=== PATIENT | male | born 1985 | race Caucasian/White ===

== ENCOUNTER 2018-08-25 11:10 | Emergency (ER) | payer SELFPAY ==
[~2018-08-25] VITALS: Ht 175.3 cm; Wt 104.3 kg
--- NOTE | 2018-08-25 11:34 | PHYS DOC ---
Adult General Chief Complaint Chief Complaint: FINGER INJURY [facility] HPI Patient is a 32 year old male who presents with complaint of injury to the right index finger. Patient states while moving a TV with a coworker, the TV slipped down and fell onto the top of the patient's right index finger, striking the PIP joint. The patient states that he has severe pain to the finger with moderate swelling. This took place shortly prior to arrival. Has not taken any medications for symptoms. Notes that there is a skin injury just on top of the PIP joint. States he is up-to-date on tetanus immunization. Denies any other injuries. States he is unable to flex the finger secondary to pain. Review of Systems Review of Systems Constitutional: Denies fever or chills [] Eyes: Denies change in visual acuity, redness, or eye pain [] HENT: Denies nasal congestion or sore throat [] Respiratory: Denies cough or shortness of breath [] Cardiovascular: No additional information not addressed in HPI [] GI: Denies abdominal pain, nausea, vomiting, bloody stools or diarrhea [] : Denies dysuria or hematuria [] Musculoskeletal: Denies back pain or joint pain [] Integument: Denies rash or skin lesions [] Neurologic: Denies headache, focal weakness or sensory changes [] Endocrine: Denies polyuria or polydipsia [] All other systems were reviewed and found to be within normal limits, except as documented in this note. Allergies Allergies No known drug allergies Physical Exam Physical Exam Constitutional: Well developed, well nourished, no acute distress, non-toxic appearance. [] [] Skin: Warm, dry, no erythema, no rash. [] Extremities: Moderate soft tissue swelling of the proximal right second phalanx, small avulsion skin injury at dorsum of PIP joint of second phalanx, unable to flex right second finger secondary to pain, tenderness to palpation at right second PIP joint and proximal phalanx. [] Neurologic: Alert and oriented X 3, normal motor function, normal sensory function, no focal deficits noted. [] Current Patient Data Vital Signs Vital Signs Date Time Temp Pulse Resp B/P (MAP) Pulse Ox O2 Delivery O2 Flow Rate FiO2 08/25/18 11:45 98.1 100 16 99 Lab Results Not performed EKG EKG Not performed[] Radiology/Procedures Radiology/Procedures [address] [place] [address] IMAGING REPORT Signed PATIENT: ODILIA VIDES ACCOUNT: [id number] : 1985 LOCATION: ER AGE: 32 SEX: M EXAM STATUS: REG ER ORD. PHYSICIAN: DARIAN ZEE MD REASON: crush injury to right index finger PROCEDURE: HAND RIGHT 3V Examination: 3 views of the right hand HISTORY: History of crush injury to the right index finger COMPARISON: None available FINDINGS: The alignment of the metacarpophalangeal joints, interphalangeal joints grossly appears unremarkable. There is no acute fracture or dislocation identified IMPRESSION: No acute osseous findings. Electronically signed by: Alan Morgan MD (08/25/2018 11:48 AM) [id number] DICTATED AND SIGNED BY: ALAN MORGAN MD DATE: 08/25/18 1148 CC: DARIAN ZEE MD; PCP,NO ~ [] Course & Med Decision Making Course & Med Decision Making Pertinent Labs and Imaging studies reviewed. (See chart for details) Wound was treated with antibiotic ointment and bandage. The patient was placed in an aluminum foam splint of the right index finger by the emergency department nurse. My evaluation post splint patient showed normal capillary refill in the index finger and normal sensation. Advised follow-up with primary doctor in the next 7 days for reevaluation and return to emergency department for any worsening symptoms. Patient was understanding and in agreement with treatment plan.[] Dragon Disclaimer Dragon Disclaimer This electronic medical record was generated, in whole or in part, using a voice recognition dictation system. Departure Departure: Impression: Primary Impression: Crushing injury of finger of right hand Additional Impression: Avulsion of skin of finger Disposition: 01 HOME, SELF-CARE Condition: IMPROVED Referrals: PCP,NO (PCP) Patient Instructions: Crush Injury, Fingers or Toes Additional Instructions: Follow-up with primary care in 7 days for reevaluation if symptoms are not improving. Return to emergency department for any worsening symptoms. Problem Qualifiers Additional Impression: Avulsion of skin of finger Encounter type: initial encounter Qualified Codes: S61.209A - Unspecified open wound of unspecified finger without damage to nail, initial encounter DARIAN ZEE MD Aug 25, 2018 11:34
[2018-08-25 11:45] VITALS: BP 140/89
--- NOTE | 2018-08-25 11:51 | RAD ---
Examination: 3 views of the right hand HISTORY: History of crush injury to the right index finger COMPARISON: None available FINDINGS: The alignment of the metacarpophalangeal joints, interphalangeal joints grossly appears unremarkable. There is no acute fracture or dislocation identified IMPRESSION: No acute osseous findings. Electronically signed by: Alan Morgan MD (08/25/2018 11:48 AM) [id number]
== END 2018-08-25 12:02 | disposition home or self-care (01) ==
LOC: ER 11:10
DX: S67.190A Crushing injury of right index finger, initial encounter (principal); S61.200A Unspecified open wound of right index finger without damage to nail, initial encounter; W23.1XXA Caught, crushed, jammed, or pinched between stationary objects, initial encounter; Y93.89 Activity, other specified; Y92.89 Other specified places as the place of occurrence of the external cause; Y99.8 Other external cause status
CPT/HCPCS: 29130; 73130; 99284